=== PATIENT | female | born 1950 | race Caucasian/White ===

== ENCOUNTER → 2019-10-13 09:21 | Outpatient (CLI) | payer MEDICARE, MEDICAID, SELFPAY ==
--- NOTE | 2019-10-13 | XR_ITS ---
PROCEDURE: XR HIP RT 2-3V W/PELVIS CLINICAL INDICATION: ACUTE BILAT LOW BACK PAIN Hip pain COMPARISON: No exams were available for comparison FINDINGS: There is a total right hip prosthesis present which is in good position without evidence of orthopedic complication. There is generalized vascular calcification. There are degenerative changes of the right SI joint IMPRESSION: Total hip prosthesis present, no acute finding Dictated by: Jose David Slater MD 10/13/2019 13:43 Electronically signed by Jose David Slater MD in [place] 10/13/2019 13:43
--- NOTE | 2019-10-13 | XR_ITS ---
PROCEDURE: XR LUMBAR SPINE MIN 4V CLINICAL INDICATION: Low back pain COMPARISON: No exams were available for comparison FINDINGS: Mild lumbar scoliosis convex right. There is lumbarization of S1. There is 13 mm anterolisthesis of L5 on S1 and 5 mm anterolisthesis of S1 on S2. Multilevel degenerative changes are present. No acute fracture or dislocation. No lytic or blastic change. There is bilateral total hip prosthesis present. The medial screw of the left acetabular cup does extend past the cortical margin medially. 4 mm calcific density overlies the lower pole left kidney suggesting left nephrolithiasis IMPRESSION: Lumbar spondylosis with scoliosis as described above. Possible left nephrolithiasis Dictated by: Jose David Slater MD 10/13/2019 10:35 Electronically signed by Jose David Slater MD in [place] 10/13/2019 10:35
--- NOTE | 2019-10-13 09:30 | XR_ITS ---
PROCEDURE: XR HIP LT 2-3V W/PELVIS CLINICAL INDICATION: Pain COMPARISON: XR LUMBAR SPINE MIN 4V from 10/13/2019 FINDINGS: Status post total left hip replacement. There is good alignment of the prosthesis. No acute fracture or dislocation. There is generalized vascular calcification. Heterotopic ossification noted lateral to the acetabular cup. The most medial screw within acetabular cup does extend medial to the cortex of the ileum slightly into the soft tissues. IMPRESSION: Status post left hip replacement as described above Dictated by: Jose David Slater MD 10/13/2019 13:20 Electronically signed by Jose David Slater MD in [place] 10/13/2019 13:20
== END ==
PROVIDERS: PCP Pediatrics; Visit Provider Pediatrics
DX: M54.5 Low back pain (principal)
CPT/HCPCS: 72110; 73502